=== PATIENT | female | born 1975 | race Caucasian/White ===

== ENCOUNTER → 2024-07-10 10:48 | Outpatient (BNVA) | payer OTHER, SELFPAY | PROVIDERS: Visit Provider Physician Assistant Medical | DX: S60.212A Contusion of left wrist, initial encounter (principal); S40.012A Contusion of left shoulder, initial encounter; S70.02XA Contusion of left hip, initial encounter; S16.1XXA Strain of muscle, fascia and tendon at neck level, initial encounter; S39.012A Strain of muscle, fascia and tendon of lower back, initial encounter; M19.012 Primary osteoarthritis, left shoulder; W01.0XXA Fall on same level from slipping, tripping and stumbling without subsequent striking against object, initial encounter | CPT/HCPCS: 73030; 73110; 73502; 99204 ==

== ENCOUNTER → 2024-07-12 08:38 | Outpatient (BNVA) | payer OTHER, SELFPAY | PROVIDERS: Visit Provider Internal Medicine | DX: M25.812 Other specified joint disorders, left shoulder (principal); M25.532 Pain in left wrist; S70.02XA Contusion of left hip, initial encounter; W01.0XXA Fall on same level from slipping, tripping and stumbling without subsequent striking against object, initial encounter | CPT/HCPCS: 99213 ==

== ENCOUNTER 2024-07-20 18:10 | Outpatient (REF) | payer OTHER, SELFPAY ==
--- NOTE | ~2024-07-20 | MR_ITS ---
EXAMINATION: MR SHOULDER, LEFT CLINICAL INFORMATION: Fall, decreased range of motion and pain. COMPARISON: None TECHNIQUE: Multiplanar multisequence MR imaging of the left shoulder was done without IV contrast. Examination performed on a 1.5 Carlee Siemens unit utilizing standard sequences. FINDINGS: Rotator Cuff and Biceps Tendon: Supraspinatus: There is a linear undersurface tear arising from the medial footplate attachment, extending approximately 8 mm into the critical zone of the tendon. This tear is approximately 9 mm in AP diameter. (Series 9, image 15). This involves approximately 40% the tendinous width. No full-thickness tear or tendinous retraction. The muscle belly is normal. Infraspinatus: Grossly intact and normal in signal. Muscle belly is normal. Subscapularis: Grossly intact and normal in signal. Muscle belly is normal. Teres Minor: Grossly intact and normal in signal. Muscle belly is normal. Biceps Long Head: Normally located within the groove. The rotator cuff interval aspect of the tendon is normal. Mildly increased fluid surrounding the tendon sheath within the groove. AC Joint and Acromiohumeral Arch: Moderate arthritis of the AC joint is present with both superior surface and undersurface spurs, and joint capsular distention. Mild undersurface spurring does not contribute to significant impingement upon the supraspinatus outlet. There is a neutral lateral acromion. No subacromial spurs. Glenohumeral Joint and Labrum: There is a small joint effusion present. Moderate to advanced arthritis in the glenohumeral joint, with a prominent circumferential osteophyte surrounding the articular surface of the humeral head. Near-complete cartilage loss and and eburnation involving the anterior articular surface of the humeral head with preservation of the posterior cartilage. There is a subtle foci of subchondral bone plate edema (series 9, image 12) of the anterior head. Mild remodeling of the glenoid with undersurface osteophytes, and associated near full-thickness cartilage loss of the posterior glenoid aspect spanning 12-6 o'clock. There is mild subchondral bone plate edema in this region. The labrum demonstrates high linear signal in the posterior aspect, likely mild degenerative type tear. The inferior labrum is diminutive in appearance. Probable Debora variant of the anterior labrum. Superior labrum is grossly intact with a suspected sublabral foramen. Osseous Structures: Aside from the above-mentioned regions of subchondral bone plate edema, and mild AC joint periarticular edema, no gross bone marrow edema or abnormal signal identified. Spino-glenoid Notch: -Normal. Quadrilateral Space: -Normal. Other: There is mild increased signal in the subacromial/subdeltoid bursa consistent with mild bursitis. MR/MR shoulder LT wo con IMPRESSION: 1. Linear undersurface/medial attachment tear of the supraspinatus tendon encompassing approximately 40% tendinous width. 2. Remainder of the rotator cuff is appears intact. No rotator cuff muscular atrophy. 3. 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 There is a prominent collar type osteophyte surrounding the articular surface of the humeral head. There is undersurface spurring of the glenoid. 4. Moderate degenerative arthritis of the AC joint with mild undersurface spurring. No supraspinatus outlet stenosis. 5. Probable degenerative type tearing of the posterior and inferior labrum. 6. Mild subacromial/subdeltoid bursitis. Electronically signed by: King Garcia MD 07/21/2024 02:29 PM [facility]ANDA
--- OUTSIDE RECORDS SUMMARY | 2024-07-20 18:13 | XMS_ITS | Patient Health Record ---
Author Organization [facility] Address [address] [place] [id number] Care Team Providers Care Service Crew Leader Name Role Phone Hima Allen Primary Care Provider DENNYS Mcarthur Unavailable [phone] MARIE COPPOLA Unavailable [phone] ALLERGIES No Known Allergies REASON FOR REFERRAL Diagnosis 1 Over weight (E66.3) Referred Provider Hima Allen Referred Provider Specialty Weight Manag ement Clinical Notes Erinn Zamora 11/2023 11:47:36 AM >received a referral and left a to [facility] call back. Pt needs an insurance auth number still. Referral Priority Routine MEDICATIONS Medication SIG (Take, Route, Frequency, Duration) Notes Start Date End Date Status Lisinopril 5 MG Oral for 90 Days Active Sertraline HCl 50 MG Oral for 90 Days Active Sronyx 0.1-20 MG-MCG Oral for 84 Days Active Darifenacin Hydrobromide ER 15 MG Oral for 90 Days Active Gabapentin 600 MG TAKE 1 TABLET IN THE MORNING AND TAKE 2 TABLETS IN THE EVENING 90 Oral for 90 Days Active Zepbound 2.5 MG/0.5ML 0.5 mL Subcutaneou s weekly for 30 days 07/12/2024 Active SOCIAL HISTORY Tobacco Use: Social History Observation Description Date Details (start date - stop date) Never Smoker NA - NA Sex Assigned At : Social History Observation Description Sex Assigned At Unknown Tobacco Use/Smoking Question Answer Notes Are you a nonsmoker PROBLEMS Problem Type ICD Code Onset Dates Problem Status W/U Status Risk SNOMED Code Notes Problem Mixed hyperlipidemia (E78.2) Active confirmed 886719354 Problem Overactive bladder (N32.81) Active confirmed 659373794 Problem Essential hypertension (I10) Active confirmed 90721257 Problem Overweight (BMI 25.0-29.9) (E66.3) Active confirmed 240342220 Problem Anxiety, generalized (F41.1) Active confirmed 75188370 VITAL SIGNS Heart Rate 88 /min 07/11/2024 Oximetry 98 % 07/11/2024 Blood pressure diastolic 62 mm Hg 07/11/2024 Height 68 in 07/11/2024 Blood pressure systolic 130 mm Hg 07/11/2024 Weight 195 lbs 07/11/2024 BMI 29.65 kg/m2 07/11/2024 Encounters Encounter Location Date Provider Diagnosis [facility] [address] [place] [address] 07/19/2024 MARIE COPPOLA [facility] [address] [place] [address] 07/11/2024 DENNYS JOE Overweight (BMI 25.0-29.9) E66.3 ; BMI 29.0-29.9,adult Z68.29 ; Essential hypertension I10 ; Anxiety, generalized F41.1 ; Mixed hyperlipidemia E78.2 and Overactive bladder N32.[address] [place] [address] 07/11/2024 DENNYS JOE [facility] [address] [place] [address] 07/12/2024 DENNYS JOE ASSESSMENTS Encounter Date Diagnosis Assessment Notes Treatment Notes Treatment Clinical Notes Section Notes 07/11/2024 BMI 29.0-29.9,adult (ICD-10 - Z68.29) Patient was reassured and welcomed to the practice. 07/11/2024: Wt: 195 lbs, BMI: 29.65 patient would like to start tirzepatide in office. Discussed calling insurance regarding coverage for Zepbound and Wegovy. Discussed role of medication in addition to side effect profile. Discussed the importance of lifestyle modifications in addition to medical weight loss injections. Recommended increasing protein with a daily protein goal of at least 100 g daily. Recommend increasing physical activity with a goal of strength training in order to promote muscle mass growth. Plan to follow-up in 4 weeks. #Hyperlipidemia: Patient provided most recent labs which indicate slightly elevated total cholesterol and LDL. Not currently on any statin therapy. Will continue with PCP recommendations. #Hypertension: Blood pressure stable in office. Plan to continue lisinopril 5 mg p.o. once daily. #Anxiety: Plan to continue sertraline 50 mg p.o. once daily #Overactive bladder: Followed by urology. Plan to continue darifenacin as prescribed. #Oral contraceptive: Patient currently on sronyx for control. States this is not for contraceptive use and instead for menorrhagia. Discussed GLP-1 effect on efficacy of control. Patient understanding. We discussed that we stress a hollistic medical approach with emphasis on lifestyle modification. Patient was informed that a healthy lifestyle with exercise and good eating habits can help reduce his risk of medical complications. Patient is explained that obesity increases his risk of diabetes, cardiovascular disease, or organ damage. We spent a lot of time discussing the relationship between food, exercise, sleep, mental health and obesity. Patient was counseled on the importance EATING local, organic food when possible. Patient was educated on clean 15 and dirty dozen. I provided information about reading books called The Food Rules by Yahir Perez and Eat Fat Get Lean by Dr Miah Queen. Self education is important in the journey for weight management. Patient was offered diagnostic testing/ SECA scale. We want to measure visceral adiposity, advanced body composition, adverse lipids, fatty acid balance, risk for heart disease and atherosclerosis, markers of inflammation and genetic susceptibility. Patient was counseled on weight management and was advised to lose weight using A. Meal Replacement Products Patient was educated on the replacement products called optifast. This is a good way of taking fixed amount of calories. It has been shown in studies to be ineffective weight management tool. This however has to be coupled with lifestyle intervention as well as laboratory data and EKG monitoring. It is impossible to know how a person will tolerate complete meal replacement. The side effects of meal replacement and weight loss could include syncopal attacks, dizziness, gallstones, potential cholecystectomy, possible heart attack and even . The benefits of meal replacement would be potential weight loss but no guarantees can be made. Meal replacement products are not covered by insurance. Once the patient has bought these products we cannot return them B. Lifestyle management which includes several strategies as below 1. Eat a low carbohydrate good fat good protein diet. Eliminate refined carbohydrates from the diet. Limit sugared beverages. Eat local organic when possible. Cook your own meals. Read food labels. Focus on healthy snacks. Portion control and food with low glycemic index 2. Exercise regularly. Try to get at least 6000 steps a day. Use a predominant to track activity level. Consider using apps like 7 minute excercise, myfitIDEV Technologiespal, lose it, stick as needed for self-monitoring and weight management. Consider group exercises. Consider hiring a personal care attendant. Regular exercise is kellogg to sustainable health and prevents as a buffer against weight regain 3. Sleep is most important for healing. Try to sleep at least 6-8 hours a night. A good quality sleep needs a sleep ritual with ideal room temperature of around 68. It might help to take a shower and have no electronics in the room and sleep in a very dark room without artificial light. Start sleep routine and get up early in the morning and go to bed on time. 4. Make a social connection. Surround yourself with positive people with positive energy. Connect with friends and family. 5. Get into the habit of meditating and mindfulness while doing everything. 6. Go outside and connect with nature. C. Prescription medications Patient was educated on the use of prescription medications for medical weight loss. This is a growing list and includes phentermine, Topamax, Qsymia, contrave, belviq and saxenda, wegovy etc. All prescription medications could have side effects including but not limited to kidney stones, seizure disorder, cardiac arrhythmias, heart attack, pancreatitis, GI effects, Etc. Patient was encouraged to read the prescription insert and discuss with their pharmacist to make an informed decision about taking medication and know that these medications are being prescribed with good intentions and we do not know how a patient would react to her medication. Some medications are FDA approved for weight loss and there is also off label use depending on patient's inability to afford medications in an attempt to lose weight. D. Behavioral counseling was done to establish a relationship between food and an mood. Patient was provided information about local counseling and psychiatry and Dr Christianson at [facility]. We would like to cover regular topics and build on low glycemic eating exercise mindful eating, using yoga and meditation along with deep breathing and connecting with friends and family. E. MASS PAT reviewed, Patient's current medications were reviewed and opinion was given on medication that can cause weight gain and can be substituted F. Patient was assessed for risk with obesity including and not limiting to atherosclerosis, heart disease, stroke, kidney disease, restrictive lung disease, irritable bowel syndrome and overall mortality. Risk of developing prediabetes diabetes and metabolic syndrome was discussed G. Therapeutic plan: We have decided to make therapeutic plan which would include choosing wisely on calories restricting portion getting active, tracking weight, getting good quality sleep and working on time management H. Patient will follow up in 4 weeks for weight management Total time spent today was 60 minutes of which greater than 50% was spent on coordinating and counseling Case discussed with collaborating physician Nikolay Coppola who reviewed the assessment and plan. Chart, medications, labs, vital signs reviewed. Dictation was accomplished with the use of [employer] voice recognition software, prone to medical misidentifications and grammatical errors. This is unintentional and the practitioner does try to identify and correct these, but some could still be present. Please do not hesitate to contact practitioner for clarification. All questions answered to patients satisfaction. Patient verbalized understanding of diagnosis and treatments explained. To call sooner prior to next visit it any questions/concerns arise. 07/11/2024 Overweight (BMI 25.0-29.9) (ICD-10 - E66.3) Patient was reassured and welcomed to the practice. 07/11/2024: Wt: 195 lbs, BMI: 29.65 patient would like to start tirzepatide in office. Discussed calling insurance regarding coverage for Zepbound and Wegovy. Discussed role of medication in addition to side effect profile. Discussed the importance of lifestyle modifications in addition to medical weight loss injections. Recommended increasing protein with a daily protein goal of at least 100 g daily. Recommend increasing physical activity with a goal of strength training in order to promote muscle mass growth. Plan to follow-up in 4 weeks. #Hyperlipidemia: Patient provided most recent labs which indicate slightly elevated total cholesterol and LDL. Not currently on any statin therapy. Will continue with PCP recommendations. #Hypertension: Blood pressure stable in office. Plan to continue lisinopril 5 mg p.o. once daily. #Anxiety: Plan to continue sertraline 50 mg p.o. once daily #Overactive bladder: Followed by urology. Plan to continue darifenacin as prescribed. #Oral contraceptive: Patient currently on sronyx for control. States this is not for contraceptive use and instead for menorrhagia. Discussed GLP-1 effect on efficacy of control. Patient understanding. We discussed that we stress a hollistic medical approach with emphasis on lifestyle modification. Patient was informed that a healthy lifestyle with exercise and good eating habits can help reduce his risk of medical complications. Patient is explained that obesity increases his risk of diabetes, cardiovascular disease, or organ damage. We spent a lot of time discussing the relationship between food, exercise, sleep, mental health and obesity. Patient was counseled on the importance EATING local, organic food when possible. Patient was educated on clean 15 and dirty dozen. I provided information about reading books called The Food Rules by Yahir Perez and Eat Fat Get Lean by Dr Miah Queen. Self education is important in the journey for weight management. Patient was offered diagnostic testing/ SECA scale. We want to measure visceral adiposity, advanced body composition, adverse lipids, fatty acid balance, risk for heart disease and atherosclerosis, markers of inflammation and genetic susceptibility. Patient was counseled on weight management and was advised to lose weight using A. Meal Replacement Products Patient was educated on the replacement products called optifast. This is a good way of taking fixed amount of calories. It has been shown in studies to be ineffective weight management tool. This however has to be coupled with lifestyle intervention as well as laboratory data and EKG monitoring. It is impossible to know how a person will tolerate complete meal replacement. The side effects of meal replacement and weight loss could include syncopal attacks, dizziness, gallstones, potential cholecystectomy, possible heart attack and even . The benefits of meal replacement would be potential weight loss but no guarantees can be made. Meal replacement products are not covered by insurance. Once the patient has bought these products we cannot return them B. Lifestyle management which includes several strategies as below 1. Eat a low carbohydrate good fat good protein diet. Eliminate refined carbohydrates from the diet. Limit sugared beverages. Eat local organic when possible. Cook your own meals. Read food labels. Focus on healthy snacks. Portion control and food with low glycemic index 2. Exercise regularly. Try to get at least 6000 steps a day. Use a predominant to track activity level. Consider using apps like 7 minute excercise, myTableGrabberpal, lose it, stick as needed for self-monitoring and weight management. Consider group exercises. Consider hiring a personal care attendant. Regular exercise is kellogg to sustainable health and prevents as a buffer against weight regain 3. Sleep is most important for healing. Try to sleep at least 6-8 hours a night. A good quality sleep needs a sleep ritual with ideal room temperature of around 68. It might help to take a shower and have no electronics in the room and sleep in a very dark room without artificial light. Start sleep routine and get up early in the morning and go to bed on time. 4. Make a social connection. Surround yourself with positive people with positive energy. Connect with friends and family. 5. Get into the habit of meditating and mindfulness while doing everything. 6. Go outside and connect with nature. C. Prescription medications Patient was educated on the use of prescription medications for medical weight loss. This is a growing list and includes phentermine, Topamax, Qsymia, contrave, belviq and saxenda, wegovy etc. All prescription medications could have side effects including but not limited to kidney stones, seizure disorder, cardiac arrhythmias, heart attack, pancreatitis, GI effects, Etc. Patient was encouraged to read the prescription insert and discuss with their pharmacist to make an informed decision about taking medication and know that these medications are being prescribed with good intentions and we do not know how a patient would react to her medication. Some medications are FDA approved for weight loss and there is also off label use depending on patient's inability to afford medications in an attempt to lose weight. D. Behavioral counseling was done to establish a relationship between food and an mood. Patient was provided information about local counseling and psychiatry and Dr Christianson at [facility]. We would like to cover regular topics and build on low glycemic eating exercise mindful eating, using yoga and meditation along with deep breathing and connecting with friends and family. E. MASS PAT reviewed, Patient's current medications were reviewed and opinion was given on medication that can cause weight gain and can be substituted F. Patient was assessed for risk with obesity including and not limiting to atherosclerosis, heart disease, stroke, kidney disease, restrictive lung disease, irritable bowel syndrome and overall mortality. Risk of developing prediabetes diabetes and metabolic syndrome was discussed G. Therapeutic plan: We have decided to make therapeutic plan which would include choosing wisely on calories restricting portion getting active, tracking weight, getting good quality sleep and working on time management H. Patient will follow up in 4 weeks for weight management Total time spent today was 60 minutes of which greater than 50% was spent on coordinating and counseling Case discussed with collaborating physician Nikolay Coppola who reviewed the assessment and plan. Chart, medications, labs, vital signs reviewed. Dictation was accomplished with the use of [employer] voice recognition software, prone to medical misidentifications and grammatical errors. This is unintentional and the practitioner does try to identify and correct these, but some could still be present. Please do not hesitate to contact practitioner for clarification. All questions answered to patients satisfaction. Patient verbalized understanding of diagnosis and treatments explained. To call sooner prior to next visit it any questions/concerns arise. 07/11/2024 Essential hypertension (ICD-10 - I10) Patient was reassured and welcomed to the practice. 07/11/2024: Wt: 195 lbs, BMI: 29.65 patient would like to start tirzepatide in office. Discussed calling insurance regarding coverage for Zepbound and Wegovy. Discussed role of medication in addition to side effect profile. Discussed the importance of lifestyle modifications in addition to medical weight loss injections. Recommended increasing protein with a daily protein goal of at least 100 g daily. Recommend increasing physical activity with a goal of strength training in order to promote muscle mass growth. Plan to follow-up in 4 weeks. #Hyperlipidemia: Patient provided most recent labs which indicate slightly elevated total cholesterol and LDL. Not currently on any statin therapy. Will continue with PCP recommendations. #Hypertension: Blood pressure stable in office. Plan to continue lisinopril 5 mg p.o. once daily. #Anxiety: Plan to continue sertraline 50 mg p.o. once daily #Overactive bladder: Followed by urology. Plan to continue darifenacin as prescribed. #Oral contraceptive: Patient currently on sronyx for control. States this is not for contraceptive use and instead for menorrhagia. Discussed GLP-1 effect on efficacy of control. Patient understanding. We discussed that we stress a hollistic medical approach with emphasis on lifestyle modification. Patient was informed that a healthy lifestyle with exercise and good eating habits can help reduce his risk of medical complications. Patient is explained that obesity increases his risk of diabetes, cardiovascular disease, or organ damage. We spent a lot of time discussing the relationship between food, exercise, sleep, mental health and obesity. Patient was counseled on the importance EATING local, organic food when possible. Patient was educated on clean 15 and dirty dozen. I provided information about reading books called The Food Rules by Yahir Perez and Eat Fat Get Lean by Dr Miah Queen. Self education is important in the journey for weight management. Patient was offered diagnostic testing/ SECA scale. We want to measure visceral adiposity, advanced body composition, adverse lipids, fatty acid balance, risk for heart disease and atherosclerosis, markers of inflammation and genetic susceptibility. Patient was counseled on weight management and was advised to lose weight using A. Meal Replacement Products Patient was educated on the replacement products called optifast. This is a good way of taking fixed amount of calories. It has been shown in studies to be ineffective weight management tool. This however has to be coupled with lifestyle intervention as well as laboratory data and EKG monitoring. It is impossible to know how a person will tolerate complete meal replacement. The side effects of meal replacement and weight loss could include syncopal attacks, dizziness, gallstones, potential cholecystectomy, possible heart attack and even . The benefits of meal replacement would be potential weight loss but no guarantees can be made. Meal replacement products are not covered by insurance. Once the patient has bought these products we cannot return them B. Lifestyle management which includes several strategies as below 1. Eat a low carbohydrate good fat good protein diet. Eliminate refined carbohydrates from the diet. Limit sugared beverages. Eat local organic when possible. Cook your own meals. Read food labels. Focus on healthy snacks. Portion control and food with low glycemic index 2. Exercise regularly. Try to get at least 6000 steps a day. Use a predominant to track activity level. Consider using apps like 7 minute excercise, [employer]pal, lose it, stick as needed for self-monitoring and weight management. Consider group exercises. Consider hiring a personal care attendant. Regular exercise is kellogg to sustainable health and prevents as a buffer against weight regain 3. Sleep is most important for healing. Try to sleep at least 6-8 hours a night. A good quality sleep needs a sleep ritual with ideal room temperature of around 68. It might help to take a shower and have no electronics in the room and sleep in a very dark room without artificial light. Start sleep routine and get up early in the morning and go to bed on time. 4. Make a social connection. Surround yourself with positive people with positive energy. Connect with friends and family. 5. Get into the habit of meditating and mindfulness while doing everything. 6. Go outside and connect with nature. C. Prescription medications Patient was educated on the use of prescription medications for medical weight loss. This is a growing list and includes phentermine, Topamax, Qsymia, contrave, belviq and saxenda, wegovy etc. All prescription medications could have side effects including but not limited to kidney stones, seizure disorder, cardiac arrhythmias, heart attack, pancreatitis, GI effects, Etc. Patient was encouraged to read the prescription insert and discuss with their pharmacist to make an informed decision about taking medication and know that these medications are being prescribed with good intentions and we do not know how a patient would react to her medication. Some medications are FDA approved for weight loss and there is also off label use depending on patient's inability to afford medications in an attempt to lose weight. D. Behavioral counseling was done to establish a relationship between food and an mood. Patient was provided information about local counseling and psychiatry and Dr Christianson at [facility]. We would like to cover regular topics and build on low glycemic eating exercise mindful eating, using yoga and meditation along with deep breathing and connecting with friends and family. E. MASS PAT reviewed, Patient's current medications were reviewed and opinion was given on medication that can cause weight gain and can be substituted F. Patient was assessed for risk with obesity including and not limiting to atherosclerosis, heart disease, stroke, kidney disease, restrictive lung disease, irritable bowel syndrome and overall mortality. Risk of developing prediabetes diabetes and metabolic syndrome was discussed G. Therapeutic plan: We have decided to make therapeutic plan which would include choosing wisely on calories restricting portion getting active, tracking weight, getting good quality sleep and working on time management H. Patient will follow up in 4 weeks for weight management Total time spent today was 60 minutes of which greater than 50% was spent on coordinating and counseling Case discussed with collaborating physician Nikolay Coppola who reviewed the assessment and plan. Chart, medications, labs, vital signs reviewed. Dictation was accomplished with the use of [employer] voice recognition software, prone to medical misidentifications and grammatical errors. This is unintentional and the practitioner does try to identify and correct these, but some could still be present. Please do not hesitate to contact practitioner for clarification. All questions answered to patients satisfaction. Patient verbalized understanding of diagnosis and treatments explained. To call sooner prior to next visit it any questions/concerns arise. 07/11/2024 Anxiety, generalized (ICD-10 - F41.1) Patient was reassured and welcomed to the practice. 07/11/2024: Wt: 195 lbs, BMI: 29.65 patient would like to start tirzepatide in office. Discussed calling insurance regarding coverage for Zepbound and Wegovy. Discussed role of medication in addition to side effect profile. Discussed the importance of lifestyle modifications in addition to medical weight loss injections. Recommended increasing protein with a daily protein goal of at least 100 g daily. Recommend increasing physical activity with a goal of strength training in order to promote muscle mass growth. Plan to follow-up in 4 weeks. #Hyperlipidemia: Patient provided most recent labs which indicate slightly elevated total cholesterol and LDL. Not currently on any statin therapy. Will continue with PCP recommendations. #Hypertension: Blood pressure stable in office. Plan to continue lisinopril 5 mg p.o. once daily. #Anxiety: Plan to continue sertraline 50 mg p.o. once daily #Overactive bladder: Followed by urology. Plan to continue darifenacin as prescribed. #Oral contraceptive: Patient currently on sronyx for control. States this is not for contraceptive use and instead for menorrhagia. Discussed GLP-1 effect on efficacy of control. Patient understanding. We discussed that we stress a hollistic medical approach with emphasis on lifestyle modification. Patient was informed that a healthy lifestyle with exercise and good eating habits can help reduce his risk of medical complications. Patient is explained that obesity increases his risk of diabetes, cardiovascular disease, or organ damage. We spent a lot of time discussing the relationship between food, exercise, sleep, mental health and obesity. Patient was counseled on the importance EATING local, organic food when possible. Patient was educated on clean 15 and dirty dozen. I provided information about reading books called The Food Rules by Yahir Perez and Eat Fat Get Lean by Dr Miah Queen. Self education is important in the journey for weight management. Patient was offered diagnostic testing/ SECA scale. We want to measure visceral adiposity, advanced body composition, adverse lipids, fatty acid balance, risk for heart disease and atherosclerosis, markers of inflammation and genetic susceptibility. Patient was counseled on weight management and was advised to lose weight using A. Meal Replacement Products Patient was educated on the replacement products called optifast. This is a good way of taking fixed amount of calories. It has been shown in studies to be ineffective weight management tool. This however has to be coupled with lifestyle intervention as well as laboratory data and EKG monitoring. It is impossible to know how a person will tolerate complete meal replacement. The side effects of meal replacement and weight loss could include syncopal attacks, dizziness, gallstones, potential cholecystectomy, possible heart attack and even . The benefits of meal replacement would be potential weight loss but no guarantees can be made. Meal replacement products are not covered by insurance. Once the patient has bought these products we cannot return them B. Lifestyle management which includes several strategies as below 1. Eat a low carbohydrate good fat good protein diet. Eliminate refined carbohydrates from the diet. Limit sugared beverages. Eat local organic when possible. Cook your own meals. Read food labels. Focus on healthy snacks. Portion control and food with low glycemic index 2. Exercise regularly. Try to get at least 6000 steps a day. Use a predominant to track activity level. Consider using apps like 7 minute excercise, myTableGrabberpal, lose it, stick as needed for self-monitoring and weight management. Consider group exercises. Consider hiring a personal care attendant. Regular exercise is kellogg to sustainable health and prevents as a buffer against weight regain 3. Sleep is most important for healing. Try to sleep at least 6-8 hours a night. A good quality sleep needs a sleep ritual with ideal room temperature of around 68. It might help to take a shower and have no electronics in the room and sleep in a very dark room without artificial light. Start sleep routine and get up early in the morning and go to bed on time. 4. Make a social connection. Surround yourself with positive people with positive energy. Connect with friends and family. 5. Get into the habit of meditating and mindfulness while doing everything. 6. Go outside and connect with nature. C. Prescription medications Patient was educated on the use of prescription medications for medical weight loss. This is a growing list and includes phentermine, Topamax, Qsymia, contrave, belviq and saxenda, wegovy etc. All prescription medications could have side effects including but not limited to kidney stones, seizure disorder, cardiac arrhythmias, heart attack, pancreatitis, GI effects, Etc. Patient was encouraged to read the prescription insert and discuss with their pharmacist to make an informed decision about taking medication and know that these medications are being prescribed with good intentions and we do not know how a patient would react to her medication. Some medications are FDA approved for weight loss and there is also off label use depending on patient's inability to afford medications in an attempt to lose weight. D. Behavioral counseling was done to establish a relationship between food and an mood. Patient was provided information about local counseling and psychiatry and Dr Christianson at [facility]. We would like to cover regular topics and build on low glycemic eating exercise mindful eating, using yoga and meditation along with deep breathing and connecting with friends and family. E. MASS PAT reviewed, Patient's current medications were reviewed and opinion was given on medication that can cause weight gain and can be substituted F. Patient was assessed for risk with obesity including and not limiting to atherosclerosis, heart disease, stroke, kidney disease, restrictive lung disease, irritable bowel syndrome and overall mortality. Risk of developing prediabetes diabetes and metabolic syndrome was discussed G. Therapeutic plan: We have decided to make therapeutic plan which would include choosing wisely on calories restricting portion getting active, tracking weight, getting good quality sleep and working on time management H. Patient will follow up in 4 weeks for weight management Total time spent today was 60 minutes of which greater than 50% was spent on coordinating and counseling Case discussed with collaborating physician Nikolay Coppola who reviewed the assessment and plan. Chart, medications, labs, vital signs reviewed. Dictation was accomplished with the use of [employer] voice recognition software, prone to medical misidentifications and grammatical errors. This is unintentional and the practitioner does try to identify and correct these, but some could still be present. Please do not hesitate to contact practitioner for clarification. All questions answered to patients satisfaction. Patient verbalized understanding of diagnosis and treatments explained. To call sooner prior to next visit it any questions/concerns arise. 07/11/2024 Mixed hyperlipidemia (ICD-10 - E78.2) Patient was reassured and welcomed to the practice. 07/11/2024: Wt: 195 lbs, BMI: 29.65 patient would like to start tirzepatide in office. Discussed calling insurance regarding coverage for Zepbound and Wegovy. Discussed role of medication in addition to side effect profile. Discussed the importance of lifestyle modifications in addition to medical weight loss injections. Recommended increasing protein with a daily protein goal of at least 100 g daily. Recommend increasing physical activity with a goal of strength training in order to promote muscle mass growth. Plan to follow-up in 4 weeks. #Hyperlipidemia: Patient provided most recent labs which indicate slightly elevated total cholesterol and LDL. Not currently on any statin therapy. Will continue with PCP recommendations. #Hypertension: Blood pressure stable in office. Plan to continue lisinopril 5 mg p.o. once daily. #Anxiety: Plan to continue sertraline 50 mg p.o. once daily #Overactive bladder: Followed by urology. Plan to continue darifenacin as prescribed. #Oral contraceptive: Patient currently on sronyx for control. States this is not for contraceptive use and instead for menorrhagia. Discussed GLP-1 effect on efficacy of control. Patient understanding. We discussed that we stress a hollistic medical approach with emphasis on lifestyle modification. Patient was informed that a healthy lifestyle with exercise and good eating habits can help reduce his risk of medical complications. Patient is explained that obesity increases his risk of diabetes, cardiovascular disease, or organ damage. We spent a lot of time discussing the relationship between food, exercise, sleep, mental health and obesity. Patient was counseled on the importance EATING local, organic food when possible. Patient was educated on clean 15 and dirty dozen. I provided information about reading books called The Food Rules by Yahir Perez and Eat Fat Get Lean by Dr Miah Queen. Self education is important in the journey for weight management. Patient was offered diagnostic testing/ SECA scale. We want to measure visceral adiposity, advanced body composition, adverse lipids, fatty acid balance, risk for heart disease and atherosclerosis, markers of inflammation and genetic susceptibility. Patient was counseled on weight management and was advised to lose weight using A. Meal Replacement Products Patient was educated on the replacement products called optifast. This is a good way of taking fixed amount of calories. It has been shown in studies to be ineffective weight management tool. This however has to be coupled with lifestyle intervention as well as laboratory data and EKG monitoring. It is impossible to know how a person will tolerate complete meal replacement. The side effects of meal replacement and weight loss could include syncopal attacks, dizziness, gallstones, potential cholecystectomy, possible heart attack and even . The benefits of meal replacement would be potential weight loss but no guarantees can be made. Meal replacement products are not covered by insurance. Once the patient has bought these products we cannot return them B. Lifestyle management which includes several strategies as below 1. Eat a low carbohydrate good fat good protein diet. Eliminate refined carbohydrates from the diet. Limit sugared beverages. Eat local organic when possible. Cook your own meals. Read food labels. Focus on healthy snacks. Portion control and food with low glycemic index 2. Exercise regularly. Try to get at least 6000 steps a day. Use a predominant to track activity level. Consider using apps like 7 minute excercise, myfitnesspal, lose it, stick as needed for self-monitoring and weight management. Consider group exercises. Consider hiring a personal care attendant. Regular exercise is kellogg to sustainable health and prevents as a buffer against weight regain 3. Sleep is most important for healing. Try to sleep at least 6-8 hours a night. A good quality sleep needs a sleep ritual with ideal room temperature of around 68. It might help to take a shower and have no electronics in the room and sleep in a very dark room without artificial light. Start sleep routine and get up early in the morning and go to bed on time. 4. Make a social connection. Surround yourself with positive people with positive energy. Connect with friends and family. 5. Get into the habit of meditating and mindfulness while doing everything. 6. Go outside and connect with nature. C. Prescription medications Patient was educated on the use of prescription medications for medical weight loss. This is a growing list and includes phentermine, Topamax, Qsymia, contrave, belviq and saxenda, wegovy etc. All prescription medications could have side effects including but not limited to kidney stones, seizure disorder, cardiac arrhythmias, heart attack, pancreatitis, GI effects, Etc. Patient was encouraged to read the prescription insert and discuss with their pharmacist to make an informed decision about taking medication and know that these medications are being prescribed with good intentions and we do not know how a patient would react to her medication. Some medications are FDA approved for weight loss and there is also off label use depending on patient's inability to afford medications in an attempt to lose weight. D. Behavioral counseling was done to establish a relationship between food and an mood. Patient was provided information about local counseling and psychiatry and Dr Christianson at [facility]. We would like to cover regular topics and build on low glycemic eating exercise mindful eating, using yoga and meditation along with deep breathing and connecting with friends and family. E. MASS PAT reviewed, Patient's current medications were reviewed and opinion was given on medication that can cause weight gain and can be substituted F. Patient was assessed for risk with obesity including and not limiting to atherosclerosis, heart disease, stroke, kidney disease, restrictive lung disease, irritable bowel syndrome and overall mortality. Risk of developing prediabetes diabetes and metabolic syndrome was discussed G. Therapeutic plan: We have decided to make therapeutic plan which would include choosing wisely on calories restricting portion getting active, tracking weight, getting good quality sleep and working on time management H. Patient will follow up in 4 weeks for weight management Total time spent today was 60 minutes of which greater than 50% was spent on coordinating and counseling Case discussed with collaborating physician Nikolay Coppola who reviewed the assessment and plan. Chart, medications, labs, vital signs reviewed. Dictation was accomplished with the use of [employer] voice recognition software, prone to medical misidentifications and grammatical errors. This is unintentional and the practitioner does try to identify and correct these, but some could still be present. Please do not hesitate to contact practitioner for clarification. All questions answered to patients satisfaction. Patient verbalized understanding of diagnosis and treatments explained. To call sooner prior to next visit it any questions/concerns arise. 07/11/2024 Overactive bladder (ICD-10 - N32.81) Patient was reassured and welcomed to the practice. 07/11/2024: Wt: 195 lbs, BMI: 29.65 patient would like to start tirzepatide in office. Discussed calling insurance regarding coverage for Zepbound and Wegovy. Discussed role of medication in addition to side effect profile. Discussed the importance of lifestyle modifications in addition to medical weight loss injections. Recommended increasing protein with a daily protein goal of at least 100 g daily. Recommend increasing physical activity with a goal of strength training in order to promote muscle mass growth. Plan to follow-up in 4 weeks. #Hyperlipidemia: Patient provided most recent labs which indicate slightly elevated total cholesterol and LDL. Not currently on any statin therapy. Will continue with PCP recommendations. #Hypertension: Blood pressure stable in office. Plan to continue lisinopril 5 mg p.o. once daily. #Anxiety: Plan to continue sertraline 50 mg p.o. once daily #Overactive bladder: Followed by urology. Plan to continue darifenacin as prescribed. #Oral contraceptive: Patient currently on sronyx for control. States this is not for contraceptive use and instead for menorrhagia. Discussed GLP-1 effect on efficacy of control. Patient understanding. We discussed that we stress a hollistic medical approach with emphasis on lifestyle modification. Patient was informed that a healthy lifestyle with exercise and good eating habits can help reduce his risk of medical complications. Patient is explained that obesity increases his risk of diabetes, cardiovascular disease, or organ damage. We spent a lot of time discussing the relationship between food, exercise, sleep, mental health and obesity. Patient was counseled on the importance EATING local, organic food when possible. Patient was educated on clean 15 and dirty dozen. I provided information about reading books called The Food Rules by Yahir Perez and Eat Fat Get Lean by Dr Miah Queen. Self education is important in the journey for weight management. Patient was offered diagnostic testing/ SECA scale. We want to measure visceral adiposity, advanced body composition, adverse lipids, fatty acid balance, risk for heart disease and atherosclerosis, markers of inflammation and genetic susceptibility. Patient was counseled on weight management and was advised to lose weight using A. Meal Replacement Products Patient was educated on the replacement products called optifast. This is a good way of taking fixed amount of calories. It has been shown in studies to be ineffective weight management tool. This however has to be coupled with lifestyle intervention as well as laboratory data and EKG monitoring. It is impossible to know how a person will tolerate complete meal replacement. The side effects of meal replacement and weight loss could include syncopal attacks, dizziness, gallstones, potential cholecystectomy, possible heart attack and even . The benefits of meal replacement would be potential weight loss but no guarantees can be made. Meal replacement products are not covered by insurance. Once the patient has bought these products we cannot return them B. Lifestyle management which includes several strategies as below 1. Eat a low carbohydrate good fat good protein diet. Eliminate refined carbohydrates from the diet. Limit sugared beverages. Eat local organic when possible. Cook your own meals. Read food labels. Focus on healthy snacks. Portion control and food with low glycemic index 2. Exercise regularly. Try to get at least 6000 steps a day. Use a predominant to track activity level. Consider using apps like 7 minute excercise, WishGeniepal, lose it, stick as needed for self-monitoring and weight management. Consider group exercises. Consider hiring a personal care attendant. Regular exercise is kellogg to sustainable health and prevents as a buffer against weight regain 3. Sleep is most important for healing. Try to sleep at least 6-8 hours a night. A good quality sleep needs a sleep ritual with ideal room temperature of around 68. It might help to take a shower and have no electronics in the room and sleep in a very dark room without artificial light. Start sleep routine and get up early in the morning and go to bed on time. 4. Make a social connection. Surround yourself with positive people with positive energy. Connect with friends and family. 5. Get into the habit of meditating and mindfulness while doing everything. 6. Go outside and connect with nature. C. Prescription medications Patient was educated on the use of prescription medications for medical weight loss. This is a growing list and includes phentermine, Topamax, Qsymia, contrave, belviq and saxenda, wegovy etc. All prescription medications could have side effects including but not limited to kidney stones, seizure disorder, cardiac arrhythmias, heart attack, pancreatitis, GI effects, Etc. Patient was encouraged to read the prescription insert and discuss with their pharmacist to make an informed decision about taking medication and know that these medications are being prescribed with good intentions and we do not know how a patient would react to her medication. Some medications are FDA approved for weight loss and there is also off label use depending on patient's inability to afford medications in an attempt to lose weight. D. Behavioral counseling was done to establish a relationship between food and an mood. Patient was provided information about local counseling and psychiatry and Dr Christianson at [facility]. We would like to cover regular topics and build on low glycemic eating exercise mindful eating, using yoga and meditation along with deep breathing and connecting with friends and family. E. MASS PAT reviewed, Patient's current medications were reviewed and opinion was given on medication that can cause weight gain and can be substituted F. Patient was assessed for risk with obesity including and not limiting to atherosclerosis, heart disease, stroke, kidney disease, restrictive lung disease, irritable bowel syndrome and overall mortality. Risk of developing prediabetes diabetes and metabolic syndrome was discussed G. Therapeutic plan: We have decided to make therapeutic plan which would include choosing wisely on calories restricting portion getting active, tracking weight, getting good quality sleep and working on time management H. Patient will follow up in 4 weeks for weight management Total time spent today was 60 minutes of which greater than 50% was spent on coordinating and counseling Case discussed with collaborating physician Nikolay Coppola who reviewed the assessment and plan. Chart, medications, labs, vital signs reviewed. Dictation was accomplished with the use of [employer] voice recognition software, prone to medical misidentifications and grammatical errors. This is unintentional and the practitioner does try to identify and correct these, but some could still be present. Please do not hesitate to contact practitioner for clarification. All questions answered to patients satisfaction. Patient verbalized understanding of diagnosis and treatments explained. To call sooner prior to next visit it any questions/concerns arise. PLAN OF TREATMENT Next Appt Details Provider Name:DENNYS JOE, 08/07/2024 02:15:00 PM, [address] [facility], [place], [id number], Insurance Providers Payer Name Payer Address Payer Phone Subscriber Number Group Number Insured Name Patient Relationship to Insured Coverage Start Date Coverage End Date [facility] [address] [place] [address] [phone] [id number] Sabina Amaya Self - patient is the insured 3 [facility] [address] [place] [address] [phone] [id number] Sabina Amaya Self - patient is the insured 3 MEDICATIONS ADMINISTERED Medication Instructions Date of Administration Dosage Notes Tirzepatide 07/11/2024 2.5 mg MEDICAL (GENERAL) HISTORY Medical History History ICD Code Hypertension Hyperlipidemia Migraines Anxiety Overactive bladder Surgical History Surgery Date(Month/Year) C section 08/08/10 C section 07/10/12
--- OUTSIDE RECORDS SUMMARY | 2024-07-20 18:13 | XMS_ITS ---
Author Organization [facility] Address [address] [place] [address] Care Team Providers Care Creative Perfumer Name Role Phone Hima Allen Primary Care Provider DENNYS Mcarthur Unavailable [phone] MEDICATIONS Medication SIG (Take, Route, Fr equency, Duration) Notes Start Date End Date Status Zepbound 2.5 MG/0.5ML 0.5 mL Subcutaneou s weekly for 30 days 07/12/2024 Active Encounters Encounter Location Date Provider Diagnosis [facility] [address] [place] [address] 07/12/2024 DENNYS JOE PLAN OF TREATMENT Medication Medication Name Sig Start Date Stop Date Notes Zepbound 2.5 MG/0.5ML 0.5 mL Subcutaneou s weekly for 30 days 07/12/2024 Next Appt Details Provider Name:DENNYS JOE, 08/07/2024 02:15:00 PM, [address] [place], [address], Progress Notes * Sabina AMAYA PDOB:[birth year] (49 yo F)Acc No.[id number]:07/12/2024 Patient:??Sabina AMAYA :1975?Age:49 Y?Sex:Fe male Address:[address] , [place] [address] * Refills?? Start Zepbound Solution Auto-injector, 2.5 MG/0.5ML, Subcutaneous, 4 Pen Needle, 0.5 mL, weekly, 30 days, Refills=0 * true * Date:??
--- OUTSIDE RECORDS SUMMARY | 2024-07-20 18:13 | XMS_ITS ---
[facility] Name [facility] Unknown History of Medication Use Medication Directions Dispensed Refills Start Date End Date Stat amoxicillin-clavu lanate (AUGMENTIN) 875-125 MG per tablet Take 1 tablet by mouth 2 (two) times a day. 07/11/2022 07/19/2022 active albuterol sulfateTak e 2 Puff(s) (inhalation) every 4 hours PRN for 7 [id number] aerosol inhalerevery 4 lisjprrvqleuvzp5yvntkh ohsl62tur/actuation 10/02/2023 active promethazine-DMTake 5 ml (oral) 3 times per day PRN - Cough for 7 [id number] times per kgaoefu2owcyjebdmk7.25 -15mg/5 mL 10/05/2023 active predniSONE (DELTASONE) 20 MG tablet Take 2 tablets (40 mg total) by mouth daily. With food. 07/11/2022 07/17/2022 active albuterol (PROVENTIL HFA; VENTOLIN HFA) 108 (90 Base) MCG/ACT inhaler Inhale 2 puffs 4 times daily (every 6 hours) as needed for wheezing or shortness of breath. 07/11/2022 active gabapentin (NEURONTIN) 600 MG tablet TAKE 1 TAB IN THE MORNING AND TAKE 2 TABS IN THE EVENING 90 DAYS 06/02/2022 active gabapentinTakeNo mars e recordedNo form recordedNo frequency recordedNo route recordedNo set duration recordedNo set duration amount recordedactiveNo dosage strength recordedNo dosage strength units of measure recorded active Problems Problem Status Onset Date Problem Type Date of Resolution Source Pneumonia, unspecified organism active 2023-10-05 ProblemAct [facility] Acute bronchospasm active 2023-10-02 ProblemAct [facility] Essential (primary) hypertension active [facility]Act [facility] Bronchitis with bronchospasm [facility] Fever, unspecified fever cause active [facility]
--- OUTSIDE RECORDS SUMMARY | 2024-07-20 18:13 | XMS_ITS | Clinical Summary ---
Author Organization [facility] Address [address] [place] [id number] Care Team Providers Care Ruby Software Developer Name Role Phone Unknown Primary Care Provider [phone] Allergies No known active allergies Medications Medication Sig Dispensed Refills Start Date End Date Status darifenacin (ENABLEX) 7.5 MG 24 hr tablet Take 7.5 mg by mouth daily. 05/29/2022 Active gabapentin (NEURONTIN) 600 MG tablet TAKE 1 TAB IN THE MORNING AND TAKE 2 TABS IN THE EVENING 90 DAYS 06/02/2022 Active Altavera 0.15-30 MG-MCG per tablet TAKE 1 TABLET BY MOUTH EVERY DAY, CONTINUOUSLY 05/21/2022 Active lisinopril (PRINIVIL,ZeSTRIL) 5 MG tablet Take 5 mg by mouth daily. 06/02/2022 Active sertraline (ZOLOFT) 50 MG tablet Take 50 mg by mouth daily. 05/14/2022 Active amoxicillin-clavula balta (AUGMENTIN) 875-125 MG per tabletIndications:B ronchitis with bronchospasm Take 1 tablet by mouth 2 (two) times a day. 14 tablet 07/11/2022 Active predniSONE (DELTASONE) 20 MG tabletIndications:B ronchitis with bronchospasm Take 2 tablets (40 mg total) by mouth daily. With food. 10 tablet 07/11/2022 Active albuterol (PROVENTIL HFA; VENTOLIN HFA) 108 (90 Base) MCG/ACT inhalerIndications: Bronchitis with bronchospasm Inhale 2 puffs 4 times daily (every 6 hours) as needed for wheezing or shortness of breath. 1 each 07/11/2022 Active benzonatate (TESSALON) 100 MG capsuleIndications: Bronchitis with bronchospasm Take 1 capsule (100 mg total) by mouth 3 (three) times a day as needed for cough. 20 capsule 07/11/2022 Active Active Problems No known active problems Social History Tobacco Use Types Packs/Day Years Used Date Smoking Tobacco: Never Assessed Sex and Gender Information Value Date Recorded Sex Assigned at Not on file Gender Identity Female 08/02/2020 9:55 PM EST Sexual Orientation Not on file Last Filed Vital Signs Vital Sign Reading Time Taken Comments Blood Pressure 136/94 07/11/2022 9:51 AM EST Pulse 107 07/11/2022 9:51 AM EST Temperature 38.1 ??C (100.5 ??F) 07/11/2022 9:[address] Respiratory Rate 16 07/11/2022 9:51 AM EST Oxygen Saturation 98% 07/11/2022 9:51 AM EST Inhaled Oxygen Concentration - - Weight - - Height - - Body Mass Index - - Plan of Treatment Health Maintenance Due Date Last Done Comments Hepatitis C Virus Screening 1975 HIV Screening 1986 DTaP/Tdap/Td Vaccines (1 - Tdap) 01/11/1992 Hepatitis B Vaccines (1 of 3 - 19+ 3-dose series) 01/11/1992 Pap Smear (Ages 21-65) 1994 Mammogram 2013 Colonoscopy 2018 Pneumococcal Vaccines 50+ (1 of 1 - PCV) 2023 Zoster (Shingles) Vaccine (1 of 2) 2023 Influenza Vaccine 01/06/2024 COVID-19 Vaccine (3 - 2023-2 5 season) 2024 09/05/2020, 08/13/2020 Pneumococcal Vaccine: Pediatric (0-5 Years) and At-Risk Patients (6 to 49 Years) Aged Out No longer eligible b ased on patient's age to complete this topic Care Teams Ruby Software Developer Relationship Specialty Start Date End Date Unknown Unknow Provider Address PCP - General 06/07/22
--- OUTSIDE RECORDS SUMMARY | 2024-07-20 18:13 | XMS_ITS ---
Author Organization [employer] [facility] Address [address] [place] [address] Care Team Providers Care Mallet Cutter Name Role Phone Hima Allen Primary Care Provider DENNYS Mcarthur Unavailable [phone] Encounters Encounter Location Date Provider Diagnosis [facility] [address] [address] 07/11/2024 DENNYS JOE PLAN OF TREATMENT Next Appt Details Provider Name:DENNYS JOE, 08/07/2024 02:15:00 PM, [address] , [place], [address], Progress Notes * Sabina AMAYA PDOB:[birth year] (49 yo F)Acc No.[id number]:07/11/2024 Patient:??Sabina AMAYA :1975?Age:49 Y?Sex:Fe male Address:[address] , [place] [address] * true * Date:??
== END 2024-07-20 18:11 | disposition home or self-care (01) ==
LOC: HO.MRI 18:10
PROVIDERS: PCP Internal Medicine; Visit Provider Internal Medicine
DX: M25.512 Pain in left shoulder (principal); Z91.81 History of falling
CPT/HCPCS: 73221

== ENCOUNTER → 2024-07-20 18:27 | Outpatient (BNV) | payer OTHER, SELFPAY | PROVIDERS: PCP Internal Medicine; Visit Provider Radiology Diagnostic Radiology | DX: M25.512 Pain in left shoulder (principal) | CPT/HCPCS: 73221 ==

== ENCOUNTER → 2024-07-26 08:18 | Outpatient (BNVA) | payer OTHER, SELFPAY | PROVIDERS: PCP Internal Medicine; Visit Provider Internal Medicine | DX: M75.102 Unspecified rotator cuff tear or rupture of left shoulder, not specified as traumatic (principal) | CPT/HCPCS: 99214 ==

== ENCOUNTER → 2024-08-02 08:27 | Outpatient (BNVA) | payer OTHER, SELFPAY | PROVIDERS: PCP Internal Medicine; Visit Provider Internal Medicine | DX: M75.102 Unspecified rotator cuff tear or rupture of left shoulder, not specified as traumatic (principal) | CPT/HCPCS: 99213 ==